=== PATIENT | female | born 1990 | race Caucasian/White ===

== ENCOUNTER 2023-02-08 08:19 | Observation (INO) | payer SELFPAY ==
[2023-02-08 09:03] VITALS: BMI 21.9
[2023-02-08 09:23] LABS: BASO % 0.3 % (0-2.0); EOS % 0.2 % (0-4.5); HEMATOCRIT 32.2 % (32.4-45.2); HEMOGLOBIN 9.7 GM/dL (10.7-15.3); LYMPH % 10.1 % (8-40); MCH 20.5 pg (25.7-33.7); MCHC 30.2 g/dl (32.0-36.0); MEAN CELL VOLUME 67.9 fl (80-96); MEAN PLT VOLUME 8.2 fl (7.5-11.1); MONO % 5.6 % (3.8-10.2); NEUT % 83.8 % (42.8-82.8); PLATELET COUNT 317 10^3/uL (134-434); RBC 4.74 M/mm3 (3.60-5.2); RDW 17.2 % (11.6-15.6); WHITE BLOOD COUNT 9.7 K/mm3 (4.0-10.0)
[2023-02-08 09:27] LABS: INR 1.05 (0.83-1.09); PROTHROMBIN TIME (PATIENT) 12.2 SEC (9.7-13.0)
[2023-02-08 09:29] LABS: ACTIVATED PTT 30.9 SECONDS (25.2-36.5)
[2023-02-08 09:43] LABS: POTASSIUM 4.2 mmol/L (3.5-5.1)
[2023-02-08 09:45] LABS: ANISOCYTOSIS 2+
[2023-02-08 09:47] LABS: ALBUMIN 3.7 g/dl (3.4-5.0)
[2023-02-08 09:49] LABS: BLOOD UREA NITROGEN 7.2 mg/dL (7-18); CALCIUM 8.9 mg/dL (8.5-10.1)
[2023-02-08 09:50] LABS: CREATININE 0.8 mg/dL (0.55-1.3)
[2023-02-08 09:52] LABS: TOT PROT 7.8 g/dl (6.4-8.2)
[2023-02-08 09:53] LABS: BILIRUBIN,TOTAL 0.4 mg/dL (0.2-1)
[2023-02-08 09:59] LABS: EPI CELLS 17 /uL (0-25.1); HYALINE CASTS 0 /uL (0-3.1); URINE APPEARANCE CLEAR; URINE BACTERIA 182 /uL (0-1359); URINE BILIRUBIN NEGATIVE (NEGATIVE); URINE COLOR YELLOW; URINE GLUCOSE (UA) NEGATIVE (NEGATIVE); URINE KETONE NEGATIVE (NEGATIVE); URINE LEUK ESTERASE TRACE (NEGATIVE); URINE NITRITE NEGATIVE (NEGATIVE); URINE PROTEIN NEGATIVE (NEGATIVE); URINE RBC 6 /uL (0-23.9); URINE UROBILINOGEN 0.2 mg/dL (0.2-1.0); URINE WBC 7 /uL (0-25.8)
[2023-02-08] MEDS ORDERED: fentaNYL CITRATE 250 MCG/5 ML VIAL ONE (15:34)
[2023-02-08 15:58] LABS: CSF COLOR COLORLESS (COLORLESS)
[2023-02-08 15:59] LABS: CSF APPEARANCE CLEAR (CLEAR)
[2023-02-08 16:01] LABS: CSF WBC 5 mm3 (0-5)
[2023-02-08 17:34] LABS: BF GLUCOSE (CSF ONLY) 56 mg/dL (40-70)
[2023-02-08] MEDS ORDERED: IMMUNE GLOBULIN IVPB ONE (21:47)
[2023-02-08] MEDS ORDERED: ACETAMINOPHEN 1000 MG/100 ML BAG IVPB PRN (22:02)
[2023-02-09] MEDS ORDERED: ACETAMINOPHEN INJECTION 100 ML IVPB ONE (00:55)
[2023-02-09 03:04] VITALS: PULSE 83
[2023-02-09 03:08] VITALS: BP 128/59; RESP 18; TEMP 99.1
[2023-02-09] MEDS ORDERED: ENOXAPARIN NA (PORCINE) 40 MG/0.4 ML DISP.SYRIN SQ SCH (10:00)
== END 2023-02-09 03:08 | disposition short-term general hospital (02) ==
LOC: JER 08:19 → JERBED 11:49
PROVIDERS: ADMIT Internal Medicine
CPT/HCPCS: 0241U-QW; 36415; 70450-TC; 80053; 80061; 81003; 82550; 82945; 82962; 83036; 84157; 84484; 84703; 85025; 85610; 85730; 86694; 86735; 86765; 86787; 86788; 86789; 86850; 86900; 86901; 87040; 87070; 87086; 87205; 93005; 93010; 99285-25; G0378; J1561